=== PATIENT | male | born 1960 | race African-American/Black ===

== ENCOUNTER 2017-12-26 16:49 | Inpatient (IN) | payer OTHER ==
[2017-12-26 19:21] VITALS: BMI 28.7
--- NOTE | 2017-12-26 19:45 | HP ---
COWS - Scale Resting Pulse: 0= [place] 80 or Below Sweatin= Chills/Flushing Restless Observation: 1= Difficult to Sit Still Pupil Size: 1= Pupils >than Normal Bone or Joint Aches: 2= Severe Diffuse Aches Runny Nose/ Eye Tearin= Runny Nose/Eyes GI Upset > 30mins: 2= Nausea/Diarrhea Tremor Observation: 1= Tremor [place], Not Seen Yawning Observation: 4= Several Times/Minute Anxiety or Irritability: 2=Irritable/Anxious Goose Flesh Skin: 0=Smooth Skin COWS Score: 16 Admission [facility] Chief Complaint: withdrawal symptoms Allergies/Adverse Reactions: Allergies Allergy/AdvReac Type Severity Reaction Status Date / Time No Known Allergies Allergy Verified 12/26/17 18:48 History of Present Illness: 57 yo male with history of Heroin, Nicotine and Crack / cocaine dependence is here for detox. Reports smokes since cigarettes since 19 yo, currently smokes 10 cigarettes per day. PMHX: insomnia. Denies suicidal/ homicidal ideation, or suicide attempts. Last detox at [facility] January,. Exam Limitations: No Limitations - Ebola screening Have you traveled outside of the country in the last 21 days: No (N) Have you had contact with anyone from an Ebola affected area: No Do you have a fever: No - Review of Systems Constitutional: Chills (reports 25 lbs loss in the past three months), Changes in sleep, Weakness, Unintentional Wgt. Loss EENT: reports: No Symptoms Reported Respiratory: reports: No Symptoms reported Cardiac: reports: No Symptoms Reported GI: reports: Diarrhea, Poor Appetite, Abdominal cramping : reports: No Symptoms Reported Musculoskeletal: reports: Joint Pain, Muscle Pain Integumentary: reports: No Symptoms Reported Neuro: reports: No Symptoms reported Endocrine: reports: Change in Weight Hematology: reports: No Symptoms Reported Psychiatric: reports: Orientated x3, Anxious Other Systems: Reviewed and Negative Patient History - Patient Medical History Hx Anemia: No Hx Asthma: No Hx Chronic Obstructive Pulmonary Disease (COPD): No Hx Cancer: No Hx Cardiac Disorders: No Hx Congestive Heart Failure: No Hx Hypertension: No Hx Hypercholesterolemia: No Hx Pacemaker: No HX Cerebrovascular Accident: No Hx Seizures: No Hx Dementia: No Hx Diabetes: No Hx Gastrointestinal Disorders: No Hx Liver Disease: No Hx Genitourinary Disorders: No Hx Sexually Transmitted Disorders: No Hx Renal Disease (ESRD): No Hx Thyroid Disease: No Hx Human Immunodeficiency Virus (HIV): No (NEGATIVE HX) Hx Hepatitis C: No Hx Depression: Yes Hx Suicide Attempt: No Hx Bipolar Disorder: No Hx Schizophrenia: No - Patient Surgical History Past Surgical History: No Hx Neurologic Surgery: No Hx Cataract Extraction: No Hx Cardiac Surgery: No Hx Lung Surgery: No Hx Breast Surgery: No Hx Breast Biopsy: No Hx Abdominal Surgery: No Hx Appendectomy: No Hx Cholecystectomy: No Hx Genitourinary Surgery: No Hx Section: No Hx Orthopedic Surgery: No Anesthesia Reaction: No - PPD History Previous Implant?: Yes Documented Results: Negative w/proof Date: 02/09/16 Results: TBD PPD to be Administered?: Yes - Reproductive History Patient is a Female of Child Bearing Age (11 -55 yrs old): No - Smoking Cessation Smoking history: Current every day smoker Have you smoked in the past 12 months: Yes Aproximately how many cigarettes per day: 10 Hx Chewing Tobacco Use: No Initiated information on smoking cessation: Yes 'Breaking Loose' booklet given: 12/26/17 - Substance & Tx. History Hx Alcohol Use: No Hx Substance Use: Yes Substance Use Type: Cocaine, Heroin Hx Substance Use Treatment: Yes (January ) - Substances Abused Heroin Route: Inhalation Frequency: Daily Amount used: 3 BAGS Age of first use: 19 Date of Last Use: 12/25/17 Crack Route: Smoking Frequency: Daily Amount used: $100 [place]TH Age of first use: 19 Date of Last Use: 12/26/17 Family Disease History - Family Disease History Family Disease History: Diabetes: Mother (AND ) Admission Physical Exam [facility] - Vital Signs Vital Signs: Vital Signs - 24 hr 12/26/17 19:17 Temperature 97.9 F Pulse Rate 72 Respiratory 18 Rate Blood Pressure 143/90 - Physical General Appearance: Yes: No Apparent Distress, Disheveled, Irritable, Anxious HEENTM: Yes: EOMI, Hearing grossly Normal, Normocephalic, Normal Voice, Tm's normal, Pale Conjunctivae R, Pale Conjunctivae L, Other (dry mucous membranes) Respiratory: Yes: Chest Non-Tender, Lungs Clear, Normal Breath Sounds, No Respiratory Distress, No Accessory Muscle Use Neck: Yes: No masses,lesions,Nodules, Trachea in good position Breast: Yes: Breast Exam Deferred Cardiology: Yes: Regular Rhythm, Regular Rate, S1, S2, Murmur Abdominal: Yes: Normal Bowel Sounds, Non Tender, Flat, Soft Genitourinary: Yes: Within Normal Limits (reports no urinary symptoms) Back: Yes: Normal Inspection Musculoskeletal: Yes: full range of Motion, Gait Steady, Pelvis Stable Extremities: Yes: Normal Capillary Refill, Normal Inspection, Normal Range of Motion, Non-Tender Neurological: Yes: denitrator operator II-XII NML intact, Fully Oriented, Motor Strength 5/5, Depressed Affect Integumentary: Yes: Normal Color, Dry, Warm, Other (poor skin turgor) Lymphatic: Yes: Within Normal Limits - Addiitonal Findings: LINES TENDER: Reference #: [id number], no narcotics prescribed - Diagnostic (1) Cocaine dependence, uncomplicated Current Visit: Yes Status: Chronic (2) Opioid dependence with withdrawal Current Visit: Yes Status: Acute (3) Nicotine dependence Current Visit: Yes Status: Chronic Qualifiers: Nicotine product type: cigarettes Substance use status: uncomplicated Qualified Code(s): F17.210 - Nicotine dependence, cigarettes, uncomplicated (4) Dehydration Current Visit: Yes Status: Acute (5) Difficulty sleeping Current Visit: Yes Status: Acute Cleared for Admission [facility] - Detox or Rehab [facility] Level of Care: Medically Managed Detox Regimen/Protocol: Methadone [facility] Breath Alcohol Content Breath Alcohol Content: 0 Urine Drug Screen - Results Drug Screen Negative: No Urine Drug Screen Results: CAROLANN-Cocaine, OPI-Opiates
[2017-12-26] MEDS ORDERED: MAGNESIUM HYDROX 2400MG/30ML ORAL SUSPENSION 30 ML CUP PO PRN (19:52)
[2017-12-26] MEDS ORDERED: hydrOXYzine PAMOATE 50 MG CAPSULE (FP) PO PRN (19:52)
[2017-12-26] MEDS ORDERED: METHADONE HCL 10 MG TABLET (FOR DETOX USE ONLY) PO ONE ×2 (19:52→23:00)
[2017-12-26] MEDS ORDERED: MAG HYDROX/AL HYDROX/SIMETH 30 ML UNIT-DOSE CUP PO PRN (19:52)
[2017-12-26] MEDS ORDERED: ACETAMINOPHEN 325 MG TABLET (FP) PO PRN (19:52)
[2017-12-26] MEDS ORDERED: NICOTINE POLACRILEX 2 MG GUM BC PRN (19:52)
[2017-12-26] MEDS ORDERED: guaiFENesin/D-METHORPHAN HB 10 ML UNIT-DOSE CUPS PO PRN (19:52)
[2017-12-26] MEDS ORDERED: LOPERAMIDE HCL 2 MG CAPSULE PO PRN (19:52)
[2017-12-26] MEDS ORDERED: MENTHOL/PHENOL 1 EACH UD MM PRN (19:52)
[2017-12-26] MEDS ORDERED: IBUPROFEN 400 MG TABLET (FP) PO PRN (19:52)
[2017-12-26] MEDS ORDERED: MAGNESIUM CITRATE 300 ML BOTTLE PO PRN (19:52)
[2017-12-26] MEDS ORDERED: P-EPHED 60MG/TRIPROLIDI 2.5MG TABLET PO PRN (19:52)
[2017-12-26] MEDS ORDERED: COLLOIDAL OATMEAL 1 BAR EACH TP PRN (19:55)
[2017-12-26] MEDS ORDERED: METHADONE HCL 10 MG TABLET (FOR DETOX USE ONLY) ONE (22:51)
[2017-12-26] MEDS: diazePAM 5 MG TABLET PO PRN (22:52)
[2017-12-26] MEDS: THIAMINE HCL 100 MG TABLET (FP) PO SCH (22:52)
[2017-12-26 23:18] LABS: URINE APPEARANCE CLEAR; URINE BILIRUBIN NEGATIVE (NEGATIVE); URINE BLOOD NEGATIVE (NEGATIVE); URINE COLOR YELLOW; URINE GLUCOSE (UA) NEGATIVE (NEGATIVE); URINE KETONE NEGATIVE (NEGATIVE); URINE LEUK ESTERASE NEGATIVE (NEGATIVE); URINE NITRITE NEGATIVE (NEGATIVE); URINE PROTEIN NEGATIVE (NEGATIVE)
--- NOTE | 2017-12-27 09:07 | CONSULT ---
[facility] Psychiatric Consult - Data Date of interview: 12/27/17 Admission source: [facility] Identifying data: This is 57 years old AA male, father of three, unemployed and homeless, withy no psychiatric hospitalization history, looking for detox from: Opioids, Cocaine and Nicotine Substance Abuse History: Smoking history: Current every day smoker. Have you smoked in the past 12 months: Yes. Aproximately how many cigarettes per day: 10. Hx Chewing Tobacco Use: No. Initiated information on smoking cessation: Yes. 'Breaking Loose' booklet given: 12/26/17. - Substance & Tx. History. Hx Alcohol Use: No. Hx Substance Use: Yes. Substance Use Type: Cocaine, Heroin. Hx Substance Use Treatment: Yes ([facility] January ). - Substances Abused. Heroin. Route: Inhalation. Frequency: Daily. Amount used: 3 BAGS. Age of first use : 19. Date of Last Use: 12/25/17. Crack. Route: Smoking. Frequency: Daily. Amount used: $100 [place]TH. Age of first use: 19. Date of Last Use: 12/26 Medical History: Denies significant medical issues Psychiatric History: Patient reports no [ast psychiqatric comntact and management history Physical/Sexual Abuse/Trauma History: Denies Additional Comment: Observation. Detox Unit Care Protocol Mental Status Exam - Mental Status Exam Alert and Oriented to: Person Cognitive Function: Fair Patient Appearance: Unkempt Mood: Anxious Affect: Mood Congruent Patient Behavior: Cooperative Speech Pattern: Appropriate Voice Loudness: Normal Thought Process: Goal Oriented Thought Disorder: Being Controlled Hallucinations: Denies Suicidal Ideation: Denies Homicidal Ideation: Denies Insight/Judgement: Fair Sleep: Difficulty falling asleep Appetite: Weight loss Muscle strength/Tone: Normal Gait/Station: Normal Additional Comments: Observation. Detox Unit Care Protocol Psychiatric Findings - Problem List ([place] 1, 2,3) (1) Opioid dependence with withdrawal Current Visit: Yes Status: Acute (2) Cocaine dependence, uncomplicated Current Visit: Yes Status: Chronic (3) Nicotine dependence Current Visit: Yes Status: Chronic Qualifiers: Nicotine product type: cigarettes Substance use status: uncomplicated Qualified Code(s): F17.210 - Nicotine dependence, cigarettes, uncomplicated (4) Drug-induced mood disorder Current Visit: No Status: Acute (5) Cocaine dependence Current Visit: No Status: Chronic Qualifiers: Substance use status: uncomplicated Qualified Code(s): F14.20 - Cocaine dependence, uncomplicated (6) Heroin dependence Current Visit: No Status: Chronic - Initial Treatment Plan Initial Treatment Plan: Observation. Detox Unit Care Protocol. Patient refusing pharmacological intervention
[2017-12-27] MEDS ORDERED: METHADONE HCL 10 MG TABLET (FOR DETOX USE ONLY) PO ONE (10:00)
[2017-12-27 10:25] LABS: HEMATOCRIT 40.2 % (35.4-49); HEMOGLOBIN 12.7 GM/dL (11.7-16.9); MCH 23.3 pg (25.7-33.7); MCHC 31.5 g/dl (32.0-35.9); MEAN CELL VOLUME 73.9 fl (80-96); MEAN PLT VOLUME 8.7 fl (7.5-11.1); PLATELET COUNT 208 K/MM3 (134-434); RBC 5.45 M/mm3 (4.00-5.60); RDW 17.1 % (11.9-15.9); WHITE BLOOD COUNT 5.3 K/mm3 (4.0-10.0)
--- NOTE | 2017-12-27 10:31 | EKG ---
Test Reason : Blood Pressure : / mmHG Vent. Rate : 087 BPM Atrial Rate : 087 BPM P-R Int : 162 ms QRS Dur : 084 ms QT Int : 426 ms P-R-T Axes : 069 004 011 degrees QTc Int : 512 ms NORMAL SINUS RHYTHM WITH SINUS ARRHYTHMIA PROLONGED QT ABNORMAL ECG NO PREVIOUS ECGS AVAILABLE Confirmed by RICARDO WONG MD ([id number]) on 12/27/2017 10:30:39 AM Referred By: Confirmed By:RICARDO WONG MD
[2017-12-27 10:37] LABS: ALBUMIN 3.3 g/dl (3.4-5.0); ANION GAP 5 (8-16); BILIRUBIN,TOTAL 0.3 mg/dL (0.2-1.0); BLOOD UREA NITROGEN 18 mg/dL (7-18); CHLORIDE 110 mmol/L (98-107); CO2 29 mmol/L (21-32); GLUCOSE,RANDOM 78 mg/dL (74-106); POTASSIUM 4.5 mmol/L (3.5-5.1); SGOT/AST 18 U/L (15-37); SGPT/ALT 24 U/L (12-78); SODIUM 144 mmol/L (136-145)
[2017-12-27 10:39] LABS: ALK PHOS 93 U/L (45-117); CALCIUM 8.8 mg/dL (8.5-10.1); CREATININE 1.2 mg/dL (0.7-1.3); TOT PROT 6.2 g/dl (6.4-8.2)
[2017-12-27] MEDS: PRENATAL VITAMINS W/ FOLIC ACID TABLET (FP) PO SCH (10:42)
[2017-12-27] MEDS: NICOTINE 14 MG/24 HOURS TOPICAL PATCH TD SCH (10:42)
--- NOTE | 2017-12-27 10:56 | EKG ---
Test Reason : Blood Pressure : / mmHG Vent. Rate : 065 BPM Atrial Rate : 065 BPM P-R Int : 168 ms QRS Dur : 076 ms QT Int : 436 ms P-R-T Axes : 049 001 -09 degrees QTc Int : 453 ms NORMAL SINUS RHYTHM MINIMAL VOLTAGE CRITERIA FOR LVH, MAY BE NORMAL VARIANT NONSPECIFIC ST AND T WAVE ABNORMALITY ABNORMAL ECG WHEN COMPARED WITH ECG OF 26-DEC-2017 22:20, QT HAS SHORTENED Confirmed by JUDITH CADE, RICARDO ([id number]) on 12/27/2017 10:56:09 AM Referred By: Confirmed By:RICARDO WONG MD
[2017-12-27 11:23] LABS: SICKLE CELL SCREEN NEGATIVE (NEGATIVE)
--- NOTE | 2017-12-27 15:56 | PN ---
BHS COWS - Scale Resting Pulse: 0= [place] 80 or Below Sweatin= Chills/Flushing Restless Observation: 1= Difficult to Sit Still Pupil Size: 0= Normal to Room Light Bone or Joint Aches: 2= Severe Diffuse Aches Runny Nose/ Eye Tearin= Nasal Congestion GI Upset > 30mins: 0= None Tremor Observation of Outstretched Hands: 2= Slight Tremor Visible Yawning Observation: 2= >3x During Session Anxiety or Irritability: 2=Irritable/Anxious Goose Flesh Skin: 3=Piloerection COWS Score: 14 BHS Progress Note (SOAP) Subjective: Tremors, Fatigue, Interrupted Sleep, Body Aches. Objective: PATIENT A & O X 2 (UNCERTAIN ABOUT CURRENT DAY/ DATE). NO ACUTE DISTRESS. PT. DENIES CHEST PAIN, SOB, AND DIZZINESS. 12/27/17 15:56 Vital Signs Temperature 97.4 F L 12/27/17 13:54 Pulse Rate 66 12/27/17 13:54 Respiratory Rate 18 12/27/17 13:54 Blood Pressure 140/94 12/27/17 13:54 O2 Sat by Pulse Oximetry (%) Laboratory Tests 12/26/17 12/27/17 12/27/17 08:20 07:30 07:30 WBC 5.3 RBC 5.45 Hgb 12.7 D Hct 40.2 MCV 73.9 L MCH 23.3 L MCHC 31.5 L RDW 17.1 H Plt Count 208 MPV 8.7 Sickle Cell Screen Negative Sodium 144 Potassium 4.5 Chloride 110 H Carbon Dioxide 29 Anion Gap 5 L BUN 18 D Creatinine 1.2 Creat Clearance w eGFR > 60 Random Glucose 78 Calcium 8.8 Total Bilirubin 0.3 D AST 18 D ALT 24 Alkaline Phosphatase 93 Total Protein 6.2 L Albumin 3.3 L Urine Color Yellow Urine Appearance Clear Urine pH 5.0 Ur Specific [place] 1.025 Urine Protein Negative Urine Glucose (UA) Negative Urine Ketones Negative Urine Blood Negative Urine Nitrite Negative Urine Bilirubin Negative Urine Urobilinogen 2.0 Ur Leukocyte Esterase Negative LABS NOTED. RPR, HCV AB RESULTS PENDING. 12/27/17 15:58 12/27/17 15:59 Assessment: 12/27/17 15:57 WITHDRAWAL SYMPTOMS. Plan: CONTINUE DETOX.
[2017-12-27] MEDS: THIAMINE HCL 100 MG TABLET (FP) PO SCH (22:04)
[2017-12-27] MEDS: diazePAM 5 MG TABLET PO PRN (22:04)
[2017-12-28] MEDS ORDERED: METHADONE HCL 5 MG TABLET (FOR DETOX USE ONLY) PO ONE (10:00)
[2017-12-28] MEDS: PRENATAL VITAMINS W/ FOLIC ACID TABLET (FP) PO SCH (11:00)
[2017-12-28] MEDS: NICOTINE 14 MG/24 HOURS TOPICAL PATCH TD SCH (11:01)
--- NOTE | 2017-12-28 12:26 | PN ---
S COWS - Scale Resting Pulse: 0= [place] 80 or Below Sweatin= Chills/Flushing Restless Observation: 1= Difficult to Sit Still Pupil Size: 0= Normal to Room Light Bone or Joint Aches: 2= Severe Diffuse Aches Runny Nose/ Eye Tearin= None GI Upset > 30mins: 0= None Tremor Observation of Outstretched Hands: 2= Slight Tremor Visible Yawning Observation: 1= 1-2x During Session Anxiety or Irritability: 2=Irritable/Anxious Goose Flesh Skin: 3=Piloerection COWS Score: 12 S Progress Note (SOAP) Subjective: Interrupted Sleep, Sweating, Tremors. Objective: PT. A & O X 2 (UNCERTAIN ABOUT CURRENT DAY / DATE). PT. OBSERVED AMBULATING ON UNIT. NO ACUTE DISTRESS. PT. DENIES CHEST PAIN, SOB, AND DIZZINESS. 12/28/17 12:27 Vital Signs Temperature 97.0 F L 12/28/17 09:20 Pulse Rate 76 12/28/17 09:20 Respiratory Rate 18 12/28/17 09:20 Blood Pressure 134/78 12/28/17 09:20 O2 Sat by Pulse Oximetry (%) Laboratory Tests 12/26/17 12/26/17 12/27/17 07:30 08:20 07:30 WBC 5.3 RBC 5.45 Hgb 12.7 D Hct 40.2 MCV 73.9 L MCH 23.3 L MCHC 31.5 L RDW 17.1 H Plt Count 208 MPV 8.7 Sickle Cell Screen Negative Sodium Potassium Chloride Carbon Dioxide Anion Gap BUN Creatinine Creat Clearance w eGFR Random Glucose Calcium Total Bilirubin AST ALT Alkaline Phosphatase Total Protein Albumin Urine Color Yellow Urine Appearance Clear Urine pH 5.0 Ur Specific [place] 1.025 Urine Protein Negative Urine Glucose (UA) Negative Urine Ketones Negative Urine Blood Negative Urine Nitrite Negative Urine Bilirubin Negative Urine Urobilinogen 2.0 Ur Leukocyte Esterase Negative RPR Titer Hepatitis C Antibody 0.1 12/27/17 12/27/17 07:30 07:30 WBC RBC Hgb Hct MCV MCH MCHC RDW Plt Count MPV Sickle Cell Screen Sodium 144 Potassium 4.5 Chloride 110 H Carbon Dioxide 29 Anion Gap 5 L BUN 18 D Creatinine 1.2 Creat Clearance w eGFR > 60 Random Glucose 78 Calcium 8.8 Total Bilirubin 0.3 D AST 18 D ALT 24 Alkaline Phosphatase 93 Total Protein 6.2 L Albumin 3.3 L Urine Color Urine Appearance Urine pH Ur Specific [place] Urine Protein Urine Glucose (UA) Urine Ketones Urine Blood Urine Nitrite Urine Bilirubin Urine Urobilinogen Ur Leukocyte Esterase RPR Titer Nonreactive Hepatitis C Antibody LABS NOTED. 12/28/17 12:28 Assessment: 12/28/17 12:28 WITHDRAWAL SYMPTOMS. Plan: CONTINUE DETOX.
[2017-12-28] MEDS: CLOTRIMAZOLE 1% CREAM 15 GM TUBE TP SCH ×2 (12:50→22:03)
[2017-12-28] MEDS: THIAMINE HCL 100 MG TABLET (FP) PO SCH (22:03)
[2017-12-29] MEDS ORDERED: METHADONE HCL 5 MG TABLET (FOR DETOX USE ONLY) PO ONE (10:00)
[2017-12-29] MEDS: PRENATAL VITAMINS W/ FOLIC ACID TABLET (FP) PO SCH (10:45)
[2017-12-29] MEDS: CLOTRIMAZOLE 1% CREAM 15 GM TUBE TP SCH ×2 (10:45→22:07)
[2017-12-29] MEDS: NICOTINE 14 MG/24 HOURS TOPICAL PATCH TD SCH (10:45)
--- NOTE | 2017-12-29 12:25 | PN ---
BHS Progress Note (SOAP) Subjective: Sweating, Fatigue. Patient reports a "boil" on sole of Right foot X approx. 1 week. Objective: PT. A & O X 2 (UNCERTAIN ABOUT CURRENT DAY / DATE), OBSERVED AMBULATING ON UNIT. NO ACUTE DISTRESS. SMALL PATCH OF THICKENED SKIN NOTED ON SOLE OF RIGHT FOOT. NO SWELLING, ERYTHEMA , WOUND, OR UNUSUAL DISCHARGE NOTED AT AFFECTED SITE. 12/29/17 12:21 Vital Signs Temperature 97.2 F L 12/29/17 09:43 Pulse Rate 100 H 12/29/17 09:43 Respiratory Rate 18 12/29/17 09:43 Blood Pressure 137/85 12/29/17 09:43 O2 Sat by Pulse Oximetry (%) Laboratory Tests 12/26/17 12/26/17 12/27/17 07:30 08:20 07:30 WBC 5.3 RBC 5.45 Hgb 12.7 D Hct 40.2 MCV 73.9 L MCH 23.3 L MCHC 31.5 L RDW 17.1 H Plt Count 208 MPV 8.7 Sickle Cell Screen Negative Sodium Potassium Chloride Carbon Dioxide Anion Gap BUN Creatinine Creat Clearance w eGFR Random Glucose Calcium Total Bilirubin AST ALT Alkaline Phosphatase Total Protein Albumin Urine Color Yellow Urine Appearance Clear Urine pH 5.0 Ur Specific [place] 1.025 Urine Protein Negative Urine Glucose (UA) Negative Urine Ketones Negative Urine Blood Negative Urine Nitrite Negative Urine Bilirubin Negative Urine Urobilinogen 2.0 Ur Leukocyte Esterase Negative RPR Titer Hepatitis C Antibody 0.1 12/27/17 12/27/17 07:30 07:30 WBC RBC Hgb Hct MCV MCH MCHC RDW Plt Count MPV Sickle Cell Screen Sodium 144 Potassium 4.5 Chloride 110 H Carbon Dioxide 29 Anion Gap 5 L BUN 18 D Creatinine 1.2 Creat Clearance w eGFR > 60 Random Glucose 78 Calcium 8.8 Total Bilirubin 0.3 D AST 18 D ALT 24 Alkaline Phosphatase 93 Total Protein 6.2 L Albumin 3.3 L Urine Color Urine Appearance Urine pH Ur Specific [place] Urine Protein Urine Glucose (UA) Urine Ketones Urine Blood Urine Nitrite Urine Bilirubin Urine Urobilinogen Ur Leukocyte Esterase RPR Titer Nonreactive Hepatitis C Antibody LABS NOTED. Assessment: 12/29/17 12:24 WITHDRAWAL SYMPTOMS. Plan: CONTINUE DETOX. ADVISED PATIENT TO OBTAIN [facility] AT [facility] (NEAR WHERE HE LIV[facility]) AFTER DISCHARGE FROM DETOX FOR FOLLOW-UP EVALUATION OF FOOT CONDITION.
[2017-12-29] MEDS: THIAMINE HCL 100 MG TABLET (FP) PO SCH (22:07)
[2017-12-30] MEDS ORDERED: METHADONE HCL 10 MG TABLET (FOR DETOX USE ONLY) PO ONE (10:00)
[2017-12-30] MEDS: PRENATAL VITAMINS W/ FOLIC ACID TABLET (FP) PO SCH (10:53)
[2017-12-30] MEDS: NICOTINE 14 MG/24 HOURS TOPICAL PATCH TD SCH (10:54)
[2017-12-30] MEDS: CLOTRIMAZOLE 1% CREAM 15 GM TUBE TP SCH ×2 (10:55→22:28)
--- NOTE | 2017-12-30 14:57 | PN ---
BHS Progress Note (SOAP) Subjective: Anxious, restless, sweating Objective: 12/30/17 14:54 Last Vital Signs Temp Pulse Resp BP Pulse Ox 97.4 F L 67 18 129/84 12/30/17 13:23 12/30/17 13:23 12/30/17 13:23 12/30/17 13:23 Laboratory Tests 12/26/17 12/26/17 12/27/17 07:30 08:20 07:30 WBC 5.3 RBC 5.45 Hgb 12.7 D Hct 40.2 MCV 73.9 L MCH 23.3 L MCHC 31.5 L RDW 17.1 H Plt Count 208 MPV 8.7 Sickle Cell Screen Negative Sodium Potassium Chloride Carbon Dioxide Anion Gap BUN Creatinine Creat Clearance w eGFR Random Glucose Calcium Total Bilirubin AST ALT Alkaline Phosphatase Total Protein Albumin Urine Color Yellow Urine Appearance Clear Urine pH 5.0 Ur Specific [place] 1.025 Urine Protein Negative Urine Glucose (UA) Negative Urine Ketones Negative Urine Blood Negative Urine Nitrite Negative Urine Bilirubin Negative Urine Urobilinogen 2.0 Ur Leukocyte Esterase Negative RPR Titer Hepatitis C Antibody 0.1 12/27/17 12/27/17 07:30 07:30 WBC RBC Hgb Hct MCV MCH MCHC RDW Plt Count MPV Sickle Cell Screen Sodium 144 Potassium 4.5 Chloride 110 H Carbon Dioxide 29 Anion Gap 5 L BUN 18 D Creatinine 1.2 Creat Clearance w eGFR > 60 Random Glucose 78 Calcium 8.8 Total Bilirubin 0.3 D AST 18 D ALT 24 Alkaline Phosphatase 93 Total Protein 6.2 L Albumin 3.3 L Urine Color Urine Appearance Urine pH Ur Specific [place] Urine Protein Urine Glucose (UA) Urine Ketones Urine Blood Urine Nitrite Urine Bilirubin Urine Urobilinogen Ur Leukocyte Esterase RPR Titer Nonreactive Hepatitis C Antibody Labs noted Assessment: 12/30/17 14:54 Withdrawal symptoms Plan: Continue detox Encouraged PO hydration (water)
[2017-12-30] MEDS: THIAMINE HCL 100 MG TABLET (FP) PO SCH (22:28)
[2017-12-31] MEDS ORDERED: METHADONE HCL 5 MG TABLET (FOR DETOX USE ONLY) PO ONE (06:00)
[2017-12-31 09:17] VITALS: BP 147/85; PULSE 63; TEMP 97.4
[2017-12-31] MEDS: CLOTRIMAZOLE 1% CREAM 15 GM TUBE TP SCH (09:35)
[2017-12-31] MEDS: PRENATAL VITAMINS W/ FOLIC ACID TABLET (FP) PO SCH (09:35)
[2017-12-31] MEDS: NICOTINE 14 MG/24 HOURS TOPICAL PATCH TD SCH (09:37)
--- NOTE | 2017-12-31 11:41 | DS ---
[facility] Detox Discharge Summary Admission Date: 12/26/17 Discharge Date: 12/31/17 - History Pertinent Past History: depression - Physical Exam Results Vital Signs: Vital Signs Temperature 97.4 F L 12/31/17 09:17 Pulse Rate 63 12/31/17 09:17 Respiratory Rate 18 12/31/17 09:17 Blood Pressure 147/85 12/31/17 09:17 O2 Sat by Pulse Oximetry (%) Pertinent Admission Physical Exam Findings: withdrawal sx Vital Signs Temperature 97.4 F L 12/31/17 09:17 Pulse Rate 63 12/31/17 09:17 Respiratory Rate 18 12/31/17 09:17 Blood Pressure 147/85 12/31/17 09:17 O2 Sat by Pulse Oximetry (%) Laboratory Last Values WBC 5.3 K/mm3 (4.0-10.0) 12/27/17 07:30 RBC 5.45 M/mm3 (4.00-5.60) 12/27/17 07:30 Hgb 12.7 GM/dL (11.7-16.9) D 12/27/17 07:30 Hct 40.2 % (35.4-49) 12/27/17 07:30 MCV 73.9 fl (80-96) L 12/27/17 07:30 MCH 23.3 pg (25.7-33.7) L 12/27/17 07:30 MCHC 31.5 g/dl (32.0-35.9) L 12/27/17 07:30 RDW 17.1 % (11.9-15.9) H 12/27/17 07:30 Plt Count 208 K/MM3 (134-434) 12/27/17 07:30 MPV 8.7 fl (7.5-11.1) 12/27/17 07:30 Sickle Cell Screen Negative (NEGATIVE) 12/27/17 07:30 Sodium 144 mmol/L (136-145) 12/27/17 07:30 Potassium 4.5 mmol/L (3.5-5.1) 12/27/17 07:30 Chloride 110 mmol/L (98-107) H 12/27/17 07:30 Carbon Dioxide 29 mmol/L (21-32) 12/27/17 07:30 Anion Gap 5 (8-16) L 12/27/17 07:30 BUN 18 mg/dL (7-18) D 12/27/17 07:30 Creatinine 1.2 mg/dL (0.7-1.3) 12/27/17 07:30 Creat Clearance w eGFR > 60 (>60) 12/27/17 07:30 Random Glucose 78 mg/dL (74-106) 12/27/17 07:30 Calcium 8.8 mg/dL (8.5-10.1) 12/27/17 07:30 Total Bilirubin 0.3 mg/dL (0.2-1.0) D 12/27/17 07:30 AST 18 U/L (15-37) D 12/27/17 07:30 ALT 24 U/L (12-78) 12/27/17 07:30 Alkaline Phosphatase 93 U/L (45-117) 12/27/17 07:30 Total Protein 6.2 g/dl (6.4-8.2) L 12/27/17 07:30 Albumin 3.3 g/dl (3.4-5.0) L 12/27/17 07:30 Urine Color Yellow 12/26/17 08:20 Urine Appearance Clear 12/26/17 08:20 Urine pH 5.0 (5.0-8.0) 12/26/17 08:20 Ur Specific [place] 1.025 (1.001-1.035) 12/26/17 08:20 Urine Protein Negative (NEGATIVE) 12/26/17 08:20 Urine Glucose (UA) Negative (NEGATIVE) 12/26/17 08:20 Urine Ketones Negative (NEGATIVE) 12/26/17 08:20 Urine Blood Negative (NEGATIVE) 12/26/17 08:20 Urine Nitrite Negative (NEGATIVE) 12/26/17 08:20 Urine Bilirubin Negative (NEGATIVE) 12/26/17 08:20 Urine Urobilinogen 2.0 mg/dL (0.2-1.0) 12/26/17 08:20 Ur Leukocyte Esterase Negative (NEGATIVE) 12/26/17 08:20 RPR Titer Nonreactive (NONREACTIVE) 12/27/17 07:30 Hepatitis C Antibody 0.1 s/co ratio (0.0-0.9) 12/26/17 07:30 - Treatment Hospital Course: Detox Protocol Followed, Detoxed Safely, Responded well, Discharged Condition Good Patient has Accepted a Rehab Referral to: O/P at [facility] - Medication Discharge Medications: Ambulatory Orders NK [No Known Home Medication] 10/23/15 - Diagnosis (1) Opioid dependence with withdrawal Current Visit: Yes Status: Acute (2) Nicotine dependence Current Visit: Yes Status: Chronic Qualifiers: Nicotine product type: cigarettes Substance use status: uncomplicated Qualified Code(s): F17.210 - Nicotine dependence, cigarettes, uncomplicated (3) Cocaine dependence, uncomplicated Current Visit: Yes Status: Acute (4) Drug-induced mood disorder Current Visit: No Status: Acute - AMA Did Patient Leave Against Medical Advice: No
== END 2017-12-31 09:33 | disposition home or self-care (01) | DRG 773 ==
LOC: YASAS 16:49 → Y3N 18:49
PROVIDERS: ADMIT Internal Medicine; ATTEND Internal Medicine
PROC: HZ2ZZZZ Detoxification Services for Substance Abuse Treatment (ICD-10-PCS; principal; 2017-12-26)
DX: F11.23 Opioid dependence with withdrawal (principal); F14.20 Cocaine dependence, uncomplicated; F17.210 Nicotine dependence, cigarettes, uncomplicated; F19.24 Other psychoactive substance dependence with psychoactive substance-induced mood disorder; E86.0 Dehydration; G47.00 Insomnia, unspecified; R01.1 Cardiac murmur, unspecified
CPT/HCPCS: 36415; 80053; 81003; 85027; 85660; 86593; 86803; 93005; 93010

== ENCOUNTER 2024-08-24 20:35 | Inpatient (IN) | payer OTHER ==
[2024-08-25 00:29] VITALS: BMI 29.8
[2024-08-25] MEDS ORDERED: BENZONATATE 200 MG CAPSULE PO PRN (02:10)
[2024-08-25] MEDS ORDERED: hydrOXYzine PAMOATE 25 MG CAPSULE (FP) PO PRN (02:10)
[2024-08-25] MEDS ORDERED: IBUPROFEN 400 MG TABLET (FP) PO PRN (02:10)
[2024-08-25] MEDS ORDERED: IBUPROFEN 600 MG TABLET (FP) PO PRN (02:10)
[2024-08-25] MEDS ORDERED: NALOXONE (NARCAN) HCL 4 MG/0.1 ML SPRAY NS PRN (02:10)
[2024-08-25] MEDS ORDERED: LOPERAMIDE HCL 2 MG CAPSULE PO PRN (02:10)
[2024-08-25] MEDS ORDERED: BENZOCAINE/MENTHOL (CHLORASEPTIC ) LOZENGE MM PRN (02:10)
[2024-08-25] MEDS ORDERED: ACETAMINOPHEN 325 MG TABLET (FP) PO PRN (02:10)
[2024-08-25] MEDS ORDERED: guaiFENesin 600 MG TABLET.ER (FP) PO PRN (02:10)
[2024-08-25] MEDS ORDERED: POLYETHYLENE GLYCOL (HEALTHYLAX) 3350 17 GM PACKET PO PRN (02:10)
[2024-08-25] MEDS ORDERED: MAG HYDROX/AL HYDROX/SIMETH 30 ML UNIT-DOSE CUP PO PRN (02:10)
[2024-08-25] MEDS ORDERED: MAGNESIUM HYDROX 2400MG/30ML ORAL SUSPENSION 30 ML CUP PO PRN (02:10)
[2024-08-25 06:30] VITALS: RESP 18
[2024-08-25 08:11] LABS: PH,URINE 5.5 (5.0-8.0); URINE APPEARANCE CLEAR; URINE BILIRUBIN NEGATIVE (NEGATIVE); URINE COLOR YELLOW; URINE GLUCOSE (UA) NEGATIVE (NEGATIVE); URINE KETONE NEGATIVE (NEGATIVE); URINE LEUK ESTERASE NEGATIVE (NEGATIVE); URINE NITRITE NEGATIVE (NEGATIVE); URINE PROTEIN NEGATIVE (NEGATIVE); URINE UROBILINOGEN 0.2 mg/dL (0.2-1.0)
[2024-08-25] MEDS ORDERED: TUBERCULIN PPD 5 TU/0.1ML VIAL ID ONE (09:13)
[2024-08-25] MEDS: PRENATAL VITAMINS W/ FOLIC ACID TABLET (FP) PO SCH (10:19)
[2024-08-25] MEDS: THIAMINE 100 MG TABLET PO SCH (22:50)
[2024-08-25] MEDS: MELATONIN 5 MG TABLETS PO SCH (22:50)
[2024-08-26 06:10] VITALS: BP 135/72; PULSE 60; TEMP 98.7
[2024-08-26] MEDS: NALOXONE (NYS OPIOID OVERDOSE PROGRAM) 4 MG/0.1 ML SPRAY NS PRN (09:26)
== END 2024-08-26 09:41 | disposition left against medical advice (07) | DRG 894 ==
LOC: YASAS 20:35 → Y3NR 08-25 02:55
PROVIDERS: ADMIT Allergy & Immunology; ATTEND Psychiatry & Neurology Pain Medicine
PROC: HZ42ZZZ Group Counseling for Substance Abuse Treatment, Cognitive-Behavioral (ICD-10-PCS; principal; 2024-08-25)
DX: F14.20 Cocaine dependence, uncomplicated (principal); F12.20 Cannabis dependence, uncomplicated; F17.210 Nicotine dependence, cigarettes, uncomplicated; G47.9 Sleep disorder, unspecified; J45.909 Unspecified asthma, uncomplicated; Z56.0 Unemployment, unspecified
CPT/HCPCS: 36415; 80305; 80307; 81003; 87811; 93005; 93010

== ENCOUNTER 2024-12-08 18:08 | Inpatient (IN) | payer OTHER ==
[2024-12-08 18:37] VITALS: BMI 26.9
[2024-12-08] MEDS ORDERED: IBUPROFEN 600 MG TABLET (FP) PO PRN (19:01)
[2024-12-08] MEDS ORDERED: LOPERAMIDE HCL 2 MG CAPSULE PO PRN (19:01)
[2024-12-08] MEDS ORDERED: guaiFENesin 600 MG TABLET.ER (FP) PO PRN (19:01)
[2024-12-08] MEDS ORDERED: NICOTINE POLACRILEX 2 MG LOZENGE BC PRN (19:01)
[2024-12-08] MEDS ORDERED: ONDANSETRON *ODT* 4 MG TABLET SL PRN (19:01)
[2024-12-08] MEDS ORDERED: IBUPROFEN 400 MG TABLET (FP) PO PRN (19:01)
[2024-12-08] MEDS ORDERED: MAG HYDROX/AL HYDROX/SIMETH 30 ML UNIT-DOSE CUP PO PRN (19:01)
[2024-12-08] MEDS ORDERED: BENZOCAINE/MENTHOL (CHLORASEPTIC ) LOZENGE MM PRN (19:01)
[2024-12-08] MEDS ORDERED: ACETAMINOPHEN 325 MG TABLET (FP) PO PRN (19:01)
[2024-12-08] MEDS ORDERED: P-EPHED 60MG/TRIPROLIDI 2.5MG TABLET PO PRN (19:01)
[2024-12-08] MEDS ORDERED: BISMUTH SUBSALICYLATE 524 MG/30 ML PO PRN (19:01)
[2024-12-08] MEDS ORDERED: MAGNESIUM HYDROX 2400MG/30ML ORAL SUSPENSION 30 ML CUP PO PRN (19:01)
[2024-12-08] MEDS ORDERED: POLYETHYLENE GLYCOL (HEALTHYLAX) 3350 17 GM PACKET PO PRN (19:01)
[2024-12-08] MEDS ORDERED: NALOXONE (NARCAN) HCL 4 MG/0.1 ML SPRAY NS PRN (19:01)
[2024-12-08] MEDS ORDERED: BENZONATATE 200 MG CAPSULE PO PRN (19:01)
[2024-12-08] MEDS ORDERED: NICOTINE POLACRILEX 2 MG GUM BUC PRN (19:01)
[2024-12-08] MEDS ORDERED: methaDONE HCL 10 MG TABLET (FOR DETOX USE ONLY) PO PRN (19:03)
[2024-12-08] MEDS: MELATONIN 5 MG TABLETS PO SCH (22:53)
[2024-12-08] MEDS: THIAMINE 100 MG TABLET PO SCH (22:53)
[2024-12-08] MEDS: cloNIDine HCL 0.1 MG TABLET PO PRN (22:55)
[2024-12-09] MEDS: PRENATAL VITAMINS W/ FOLIC ACID TABLET (FP) PO SCH (09:45)
[2024-12-10] MEDS: methaDONE HCL 10 MG TABLET (FOR DETOX USE ONLY) PO ONE (09:17)
[2024-12-12] MEDS: methaDONE HCL 10 MG TABLET (FOR DETOX USE ONLY) PO ONE (10:41)
[2024-12-13 09:16] VITALS: BP 166/91; PULSE 55; RESP 20; TEMP 97.7
== END 2024-12-13 10:40 | disposition home or self-care (01) | DRG 897 ==
LOC: YASAS 18:08 → Y3N 19:28
PROVIDERS: ADMIT Allergy & Immunology; ATTEND Allergy & Immunology
PROC: HZ2ZZZZ Detoxification Services for Substance Abuse Treatment (ICD-10-PCS; principal; 2024-12-08)
DX: F11.23 Opioid dependence with withdrawal (principal); F14.20 Cocaine dependence, uncomplicated; F17.210 Nicotine dependence, cigarettes, uncomplicated; J45.909 Unspecified asthma, uncomplicated
CPT/HCPCS: 80305; 80307